=== PATIENT | female | born 1995 | race Caucasian/White ===

== ENCOUNTER 2017-03-10 18:49 | Emergency (ER) | payer OTHER ==
[~2017-03-10] VITALS: Ht 172.7 cm; Wt 86.2 kg
[~2017-03-10 18:49] MED LIST: CLARITIN10 MG PO; EPI EZ PEN1 MG/ML IM; MEDROL DOSEPAK4 MG PO; NKHM
[2017-03-10] MEDS ORDERED: CEFADROXIL500 M1 PO (18:58)
== END 2017-03-10 19:12 | disposition home or self-care (01) ==
LOC: ED 18:49
DX: S61.210A Laceration without foreign body of right index finger without damage to nail, initial encounter (principal); Z91.030 Bee allergy status; W45.8XXA Other foreign body or object entering through skin, initial encounter; Y93.89 Activity, other specified; Y92.9 Unspecified place or not applicable; Y99.9 Unspecified external cause status

== ENCOUNTER 2017-03-23 19:16 | Emergency (ER) | payer OTHER ==
[~2017-03-23] VITALS: Wt 88.5 kg
[~2017-03-23 19:16] MED LIST changes: +CEFADROXIL500 M1 PO
== END 2017-03-23 19:46 | disposition home or self-care (01) ==
LOC: ED 19:16
DX: S61.210D Laceration without foreign body of right index finger without damage to nail, subsequent encounter (principal); Z48.02 Encounter for removal of sutures; Z91.030 Bee allergy status; X58.XXXD Exposure to other specified factors, subsequent encounter; Y92.9 Unspecified place or not applicable; Y99.9 Unspecified external cause status

== ENCOUNTER 2017-04-10 22:02 | Emergency (ER) | payer OTHER ==
[~2017-04-10] VITALS: Ht 167.6 cm; Wt 87.1 kg
[2017-04-10] MEDS ORDERED: PRENA1 TRUE CO1 EACH PO (22:18)
== END 2017-04-10 22:23 | disposition home or self-care (01) ==
LOC: ED 22:02
DX: Z32.01 Encounter for pregnancy test, result positive (principal); Z3A.01 Less than 8 weeks gestation of pregnancy; Z91.030 Bee allergy status

== ENCOUNTER 2017-07-04 20:43 | Emergency (ER) | payer OTHER ==
[~2017-07-04] VITALS: Ht 172.7 cm; Wt 89.8 kg
[~2017-07-04 20:43] MED LIST changes: +PRENA1 TRUE CO1 EACH PO
[2017-07-04 22:16] LABS: BASO % 0.2 % (0.0-1.0); EOS # 0.1 10*3/uL (0.0-0.4); EOS % 0.9 % (1.0-4.0); HEMATOCRIT 31.6 % (37.0-47.0); HEMOGLOBIN 11.3 g/dl (12.0-16.0); LYMPH # 3.2 10*3/uL (1.3-4.4); LYMPH % 27.9 % (27.0-41.0); MEAN CELL VOLUME 89.3 fl (81.0-99.0); MEAN CORPUSCULAR HGB 31.9 pg (27.0-31.0); MEAN CORPUSCULAR HGB CONC 35.8 g/dl (33.0-37.0); MONO # 0.9 10*3/uL (0.1-1.0); MONO % 7.3 % (3.0-9.0); NEUT # 7.3 10*3/uL (2.3-7.9); NEUT % 63.3 % (47.0-73.0); PLATELET COUNT AUTOMATED 241 10*3/uL (130-400); RED BLOOD COUNT 3.54 10*6/uL (4.10-5.10); WHITE BLOOD COUNT 11.6 10*3/uL (4.8-10.8)
[2017-07-04 22:40] LABS: BILIRUBIN NEGATIVE (NEGATIVE); BLOOD NEGATIVE (NEGATIVE); CLARITY SL CLOUDY (CLEAR); COLOR YELLOW (YELLOW); GLUCOSE NEGATIVE (NEGATIVE); KETONE NEGATIVE (NEGATIVE); LEUKO ESTERASE NEGATIVE (NEGATIVE); NITRITE NEGATIVE (NEGATIVE); PH 7.5 (5.0-9.0); UROBILINOGEN 0.2 E.U./dl (0.2-1.0)
[2017-07-04 22:51] LABS: BACTERIA 1+; RBC 0-2 rbc/hpf (0-2); WBC 0-2 wbc/hpf (0-5)
== END 2017-07-05 00:16 | disposition home or self-care (01) ==
LOC: ED 20:43
PROVIDERS: Emergency Medicine Emergency Medical Services
DX: O9A.212 Injury, poisoning and certain other consequences of external causes complicating pregnancy, second trimester (principal); S76.011A Strain of muscle, fascia and tendon of right hip, initial encounter; Z91.030 Bee allergy status; Z3A.20 20 weeks gestation of pregnancy; X58.XXXA Exposure to other specified factors, initial encounter; Y93.01 Activity, walking, marching and hiking; Y92.89 Other specified places as the place of occurrence of the external cause; Y99.8 Other external cause status

== ENCOUNTER 2018-05-13 02:49 | Emergency (ER) | payer OTHER ==
[~2018-05-13] VITALS: Wt 86.2 kg
[2018-05-13 03:06] LABS: BASO % 0.3 % (0.0-1.0); EOS # 0.1 10*3/uL (0.0-0.4); HEMATOCRIT 36.1 % (37.0-47.0); HEMOGLOBIN 12.5 g/dl (12.0-16.0); LYMPH # 4.1 10*3/uL (1.3-4.4); LYMPH % 39.2 % (27.0-41.0); MEAN CELL VOLUME 87.8 fl (81.0-99.0); MEAN CORPUSCULAR HGB 30.4 pg (27.0-31.0); MEAN CORPUSCULAR HGB CONC 34.6 g/dl (33.0-37.0); MEAN PLATELET VOLUME 10.4 fl (9.6-12.3); MONO # 0.7 10*3/uL (0.1-1.0); MONO % 6.3 % (3.0-9.0); NEUT # 5.5 10*3/uL (2.3-7.9); NEUT % 52.9 % (47.0-73.0); PLATELET COUNT AUTOMATED 243 10*3/uL (130-400); RED BLOOD COUNT 4.11 10*6/uL (4.10-5.10); RED CELL DISTRI WIDTH 12.1 % (0-14.5); WHITE BLOOD COUNT 10.4 10*3/uL (4.8-10.8)
[2018-05-13 03:11] LABS: BILIRUBIN NEGATIVE (NEGATIVE); BLOOD NEGATIVE (NEGATIVE); CLARITY CLEAR (CLEAR); COLOR YELLOW (YELLOW); GLUCOSE NEGATIVE (NEGATIVE); KETONE NEGATIVE (NEGATIVE); LEUKO ESTERASE NEGATIVE (NEGATIVE); NITRITE NEGATIVE (NEGATIVE); UROBILINOGEN 0.2 E.U./dl (0.2-1.0)
[2018-05-13 03:16] LABS: BACTERIA 1+; RBC 0-2 rbc/hpf (0-2); WBC 0-2 wbc/hpf (0-5)
[2018-05-13 03:20] LABS: ALBUMIN 3.4 gm/dl (3.1-4.5); ALKALINE PHOSPHATASE 79 U/L (45-117); BUN 7 mg/dl (7-24); CHLORIDE 108 mmol/L (98-107); CREATININE 0.74 mg/dL (0.55-1.02); POTASSIUM 3.4 mmol/L (3.5-5.1); SGOT/AST 20 IU/L (3-35); SGPT/ALT 42 U/L (12-78); SODIUM 139 mmol/L (136-145); TOTAL PROTEIN 6.9 gm/dL (6.4-8.2)
[2018-05-13 03:22] LABS: BETA-HCG, QUANT < 1.0 mIU/mL (1-3)
[2018-05-13] MEDS ORDERED: SEPTDS PO (03:39)
== END 2018-05-13 03:45 | disposition home or self-care (01) ==
LOC: ED 02:49
PROVIDERS: Student in an Organized Health Care Education/Training Program
DX: N39.0 Urinary tract infection, site not specified (principal); Z91.030 Bee allergy status; Z79.899 Other long term (current) drug therapy

== ENCOUNTER 2019-09-25 11:30 | Emergency (ER) | payer MEDICAID ==
[~2019-09-25] VITALS: Ht 172.7 cm; Wt 95.3 kg
[~2019-09-25 11:30] MED LIST changes: +SEPTDS PO
[2019-09-25] MEDS ORDERED: NAPROSYN500 MG PO (13:03)
[2019-09-25] MEDS ORDERED: AMOXICILLIN500 M2 PO (13:03)
== END 2019-09-25 13:39 | disposition home or self-care (01) ==
LOC: ED 11:30
DX: J02.0 Streptococcal pharyngitis (principal); R11.10 Vomiting, unspecified; Z91.030 Bee allergy status

== ENCOUNTER 2021-04-18 17:44 | Emergency (ER) | payer MEDICAID ==
[~2021-04-18] VITALS: Ht 170.1 cm; Wt 97.5 kg
[~2021-04-18 17:44] MED LIST changes: +AMOXICILLIN500 M2 PO; +NAPROSYN500 MG PO
[2021-04-18 19:01] LABS: BASO % 0.3 % (0.0-1.0); EOS # 0.1 10*3/uL (0.0-0.4); EOS % 1.5 % (1.0-4.0); HEMATOCRIT 36.1 % (37.0-47.0); LYMPH # 3.2 10*3/uL (1.3-4.4); LYMPH % 40.4 % (27.0-41.0); MEAN CELL VOLUME 87.8 fl (81.0-99.0); MEAN CORPUSCULAR HGB 30.2 pg (27.0-31.0); MEAN CORPUSCULAR HGB CONC 34.3 g/dl (33.0-37.0); MEAN PLATELET VOLUME 10.5 fl (9.6-12.3); MONO # 0.7 10*3/uL (0.1-1.0); MONO % 8.2 % (3.0-9.0); NEUT # 3.9 10*3/uL (2.3-7.9); NEUT % 49.3 % (47.0-73.0); PLATELET COUNT AUTOMATED 256 10*3/uL (130-400); RED BLOOD COUNT 4.11 10*6/uL (4.10-5.10); RED CELL DISTRI WIDTH 12.2 % (0-14.5); WHITE BLOOD COUNT 7.9 10*3/uL (4.8-10.8)
[2021-04-18 19:16] LABS: ALBUMIN 3.1 gm/dl (3.1-4.5); ALKALINE PHOSPHATASE 61 U/L (45-117); BUN 9 mg/dl (7-24); CHLORIDE 111 mmol/L (98-107); CREATININE 0.77 mg/dL (0.55-1.02); LIPASE 115 U/L (73-393); POTASSIUM 3.5 mmol/L (3.5-5.1); SGOT/AST 10 IU/L (3-35); SGPT/ALT 20 U/L (12-78); SODIUM 137 mmol/L (136-145); TOTAL PROTEIN 7.3 gm/dL (6.4-8.2)
== END 2021-04-18 20:35 | disposition home or self-care (01) ==
LOC: ED 17:44
PROVIDERS: Physician Assistant
DX: M25.511 Pain in right shoulder (principal); R10.11 Right upper quadrant pain; Z91.030 Bee allergy status; Z79.899 Other long term (current) drug therapy; Z79.2 Long term (current) use of antibiotics

== ENCOUNTER 2021-11-07 17:59 | Emergency (ER) | payer MEDICAID ==
[~2021-11-07] VITALS: Wt 97.5 kg
== END 2021-11-07 20:28 | disposition home or self-care (01) ==
LOC: ED 17:59
DX: R05.9 Cough, unspecified (principal); Z20.822 Contact with and (suspected) exposure to COVID-19

== ENCOUNTER 2022-08-11 16:45 | Emergency (ER) | payer MEDICAID ==
[~2022-08-11] VITALS: Ht 167.6 cm; Wt 97.5 kg
== END 2022-08-11 18:18 | disposition home or self-care (01) ==
LOC: ED 16:45
DX: S61.012A Laceration without foreign body of left thumb without damage to nail, initial encounter (principal); W26.0XXA Contact with knife, initial encounter; Y93.89 Activity, other specified; Y92.89 Other specified places as the place of occurrence of the external cause; Y99.8 Other external cause status

== ENCOUNTER 2022-08-20 17:57 | Emergency (ER) | payer MEDICAID ==
[~2022-08-20] VITALS: Ht 167.6 cm; Wt 97.5 kg
[2022-08-20] MEDS ORDERED: AMOXICILLIN875 MG PO (18:51)
== END 2022-08-20 19:10 | disposition home or self-care (01) ==
LOC: ED 17:57
DX: J02.9 Acute pharyngitis, unspecified (principal); Z91.030 Bee allergy status

== ENCOUNTER 2022-11-06 14:16 | Emergency (ER) | payer MEDICAID ==
[~2022-11-06] VITALS: Ht 170.1 cm; Wt 99.8 kg
[~2022-11-06 14:16] MED LIST changes: +AMOXICILLIN875 MG PO
[2022-11-06] MEDS ORDERED: IBU800 M1 PO (17:59)
[2022-11-06] MEDS ORDERED: MUCINEX D ER 61 EACH PO (17:59)
== END 2022-11-06 18:24 | disposition home or self-care (01) ==
LOC: ED 14:16
DX: J10.1 Influenza due to other identified influenza virus with other respiratory manifestations (principal); Z20.822 Contact with and (suspected) exposure to COVID-19; Z91.030 Bee allergy status

== ENCOUNTER 2023-01-23 12:07 | Emergency (ER) | payer MEDICAID ==
[~2023-01-23] VITALS: Ht 170.1 cm; Wt 97.5 kg
[~2023-01-23 12:07] MED LIST changes: +IBU800 M1 PO; +MUCINEX D ER 61 EACH PO
[2023-01-23] MEDS ORDERED: PREDNISONE20 M1 PO (14:22)
[2023-01-23] MEDS ORDERED: NAPROSYN500 MG PO (14:22)
[2023-01-23] MEDS ORDERED: CYCLOBENZAPRINE5 M3 PO (14:22)
== END 2023-01-23 14:39 | disposition home or self-care (01) ==
LOC: ED 12:07
DX: M25.511 Pain in right shoulder (principal); Z91.030 Bee allergy status

== ENCOUNTER 2023-08-27 22:11 | Emergency (ER) | payer MEDICAID ==
[~2023-08-27] VITALS: Ht 175.2 cm; Wt 93.4 kg
[~2023-08-27 22:11] MED LIST changes: +CYCLOBENZAPRINE5 M3 PO; +PREDNISONE20 M1 PO
[2023-08-27] MEDS ORDERED: AMOX-CLAV 875-1 EACH PO (22:20)
== END 2023-08-27 22:28 | disposition home or self-care (01) ==
LOC: ED 22:11
DX: J02.0 Streptococcal pharyngitis (principal); Z91.030 Bee allergy status; Z79.2 Long term (current) use of antibiotics; Z79.899 Other long term (current) drug therapy

== ENCOUNTER 2024-02-13 14:54 | Emergency (ER) | payer MEDICAID ==
[~2024-02-13] VITALS: Ht 167.6 cm; Wt 95.3 kg
[~2024-02-13 14:54] MED LIST changes: +AMOX-CLAV 875-1 EACH PO
[2024-02-13] MEDS ORDERED: AMOX-CLAV 875-1 EACH PO (15:11)
[2024-02-13] MEDS ORDERED: Amoxicillin/Clavulanate Pota 875 MG TAB PO ONE (15:15)
== END 2024-02-13 15:29 | disposition home or self-care (01) ==
LOC: ED 14:54
DX: J02.9 Acute pharyngitis, unspecified (principal); Z91.030 Bee allergy status

== ENCOUNTER 2024-03-24 22:29 | Emergency (ER) | payer MEDICAID ==
[~2024-03-24] VITALS: Ht 167 cm; Wt 93.0 kg
[2024-03-24] MEDS ORDERED: AMOXICILLIN500 M2 PO (22:58)
[2024-03-24] MEDS ORDERED: AMOXICILLIN 500 MG CAP PO ONE (23:05)
== END 2024-03-24 23:20 | disposition home or self-care (01) ==
LOC: ED 22:29
DX: J02.8 Acute pharyngitis due to other specified organisms (principal); Z91.030 Bee allergy status; Z79.899 Other long term (current) drug therapy; Z79.2 Long term (current) use of antibiotics

== ENCOUNTER 2024-05-28 15:54 | Emergency (ER) | payer MEDICAID ==
[~2024-05-28] VITALS: Ht 167.6 cm; Wt 97.5 kg
[2024-05-28] MEDS ORDERED: AMOX-CLAV 875-1 EACH PO (16:57)
== END 2024-05-28 17:10 | disposition home or self-care (01) ==
LOC: ED 15:54
DX: J02.9 Acute pharyngitis, unspecified (principal); Z91.030 Bee allergy status

== ENCOUNTER 2024-07-04 16:30 | Emergency (ER) | payer MEDICAID ==
[~2024-07-04] VITALS: Ht 167.6 cm; Wt 97.5 kg
[2024-07-04] MEDS ORDERED: Ketorolac Tromethamine 15 MG/ML VIAL IV ONE (17:00)
[2024-07-04] MEDS ORDERED: Ondansetron Hydrochloride 4 MG/2 ML VIAL IV ONE (17:00)
[2024-07-04] MEDS ORDERED: SODIUM CHLORIDE 0.9% 1,000 ML IV ONE (17:00)
[2024-07-04] MEDS ORDERED: IOHEXOL 300 MG/ML 100 ML VIAL IV ONE (17:05)
[2024-07-04 17:14] LABS: BASO % 0.3 % (0.0-1.0); EOS % 0.2 % (1.0-4.0); HEMATOCRIT 34.7 % (37.0-47.0); LYMPH # 1.3 10*3/uL (1.3-4.4); LYMPH % 22.3 % (27.0-41.0); MEAN CELL VOLUME 88.3 fl (81.0-99.0); MEAN CORPUSCULAR HGB 31.3 pg (27.0-31.0); MEAN CORPUSCULAR HGB CONC 35.4 g/dl (33.0-37.0); MEAN PLATELET VOLUME 9.6 fl (9.6-12.3); MONO # 0.5 10*3/uL (0.1-1.0); MONO % 8.5 % (3.0-9.0); NEUT # 4.1 10*3/uL (2.3-7.9); NEUT % 68.5 % (47.0-73.0); PLATELET COUNT AUTOMATED 211 10*3/uL (130-400); RED BLOOD COUNT 3.93 10*6/uL (4.10-5.10); RED CELL DISTRI WIDTH 12.2 % (0-14.5)
[2024-07-04 17:28] LABS: BUN 6 mg/dl (9-23); CHLORIDE 103 mmol/L (98-107); POTASSIUM 3.1 mmol/L (3.4-5.1)
[2024-07-04] MEDS ORDERED: Ondansetron4 MG PO (19:48)
[2024-07-04] MEDS ORDERED: AMOXICILLI400 MG/51 PO (19:48)
[2024-07-04] MEDS ORDERED: NAPROSYN500 MG PO (19:48)
[2024-07-04] MEDS ORDERED: AMOXICILLIN 250 MG/5 ML ORAL SYRINGE PO ONE (19:50)
== END 2024-07-04 19:57 | disposition home or self-care (01) ==
LOC: ED 16:30
PROVIDERS: Nurse Practitioner Family
DX: J02.0 Streptococcal pharyngitis (principal); H92.02 Otalgia, left ear; M54.2 Cervicalgia; Z91.030 Bee allergy status; Z90.89 Acquired absence of other organs; Z98.51 Tubal ligation status

== ENCOUNTER 2024-07-31 15:44 | Emergency (ER) | payer MEDICAID ==
[~2024-07-31] VITALS: Ht 167.6 cm; Wt 95.3 kg
[~2024-07-31 15:44] MED LIST changes: +AMOXICILLI400 MG/51 PO; +Ondansetron4 MG PO
[2024-07-31 20:36] LABS: BASO % 0.3 % (0.0-1.0); EOS # 0.1 10*3/uL (0.0-0.4); EOS % 1.3 % (1.0-4.0); HEMATOCRIT 39.4 % (37.0-47.0); LYMPH # 3.4 10*3/uL (1.3-4.4); LYMPH % 38.2 % (27.0-41.0); MEAN CELL VOLUME 87.9 fl (81.0-99.0); MEAN CORPUSCULAR HGB CONC 35.3 g/dl (33.0-37.0); MEAN PLATELET VOLUME 9.8 fl (9.6-12.3); MONO # 0.6 10*3/uL (0.1-1.0); MONO % 6.6 % (3.0-9.0); NEUT # 4.8 10*3/uL (2.3-7.9); NEUT % 53.4 % (47.0-73.0); PLATELET COUNT AUTOMATED 282 10*3/uL (130-400); RED BLOOD COUNT 4.48 10*6/uL (4.10-5.10); RED CELL DISTRI WIDTH 12.7 % (0-14.5); WHITE BLOOD COUNT 8.9 10*3/uL (4.8-10.8)
[2024-07-31 21:07] LABS: BUN 8 mg/dl (9-23); CHLORIDE 104 mmol/L (98-107)
== END 2024-07-31 22:41 | disposition home or self-care (01) ==
LOC: ED 15:44
PROVIDERS: Nurse Practitioner
DX: B34.9 Viral infection, unspecified (principal); Z20.822 Contact with and (suspected) exposure to COVID-19; Z91.030 Bee allergy status; Z90.89 Acquired absence of other organs; Z98.51 Tubal ligation status

== ENCOUNTER 2024-08-05 15:11 | Emergency (ER) | payer MEDICAID ==
[~2024-08-05] VITALS: Ht 167.6 cm; Wt 95.3 kg
[2024-08-05] MEDS ORDERED: ZITHROMAX500 MG PO (15:20)
[2024-08-05] MEDS ORDERED: AZITHROMYCIN 250 MG TAB PO ONE (15:20)
== END 2024-08-05 18:30 | disposition home or self-care (01) ==
LOC: ED 15:11
DX: J02.9 Acute pharyngitis, unspecified (principal); F17.290 Nicotine dependence, other tobacco product, uncomplicated; Z91.030 Bee allergy status; Z90.89 Acquired absence of other organs; Z98.51 Tubal ligation status

== ENCOUNTER 2025-03-09 14:34 | Emergency (ER) | payer MEDICAID ==
[~2025-03-09] VITALS: Ht 170.1 cm; Wt 93.0 kg
[~2025-03-09 14:34] MED LIST changes: +ZITHROMAX500 MG PO
[2025-03-09] MEDS ORDERED: Amoxicillin/Clavulanate Pota 875 MG TAB PO ONE (15:00)
== END 2025-03-09 15:26 | disposition home or self-care (01) ==
LOC: ED 14:34
DX: J02.0 Streptococcal pharyngitis (principal); Z91.030 Bee allergy status; Z90.89 Acquired absence of other organs; Z98.51 Tubal ligation status

== ENCOUNTER 2025-04-22 10:42 | Emergency (ER) | payer MEDICAID ==
[~2025-04-22] VITALS: Ht 167.6 cm; Wt 97.5 kg
[2025-04-22] MEDS ORDERED: PREDNISONE20 M1 PO (12:50)
[2025-04-22] MEDS ORDERED: methylPREDNISolone sod succ 125 MG VIAL IM ONE (12:50)
== END 2025-04-22 12:54 | disposition home or self-care (01) ==
LOC: ED 10:42
DX: T63.441A Toxic effect of venom of bees, accidental (unintentional), initial encounter (principal); Z79.899 Other long term (current) drug therapy; Z91.030 Bee allergy status; Y92.89 Other specified places as the place of occurrence of the external cause